=== PATIENT | female | born 1965 | race Two or more races ===

== ENCOUNTER 2017-08-23 16:28 | Emergency (ER) | payer OTHER, BC ==
[~2017-08-23] VITALS: Ht 157.5 cm; Wt 70.1 kg
[~2017-08-23 16:28] MED LIST: ALBUTEROL2.5 MG/3 M IH; AMLODIPINE-ATO1 EACH PO; CIPRO500 MG PO; LO-DOSE ASPIRIN81 M1 PO; TRAMADOL HCL50 MG PO
[2017-08-23] MEDS ORDERED: FLEXERIL10 MG PO (18:47)
[2017-08-23 18:56] VITALS: BP 184/105
== END 2017-08-23 18:59 | disposition home or self-care (01) ==
LOC: EME 16:28
DX: S13.9XXA Sprain of joints and ligaments of unspecified parts of neck, initial encounter (principal); V49.40XA Driver injured in collision with unspecified motor vehicles in traffic accident, initial encounter; Y92.410 Unspecified street and highway as the place of occurrence of the external cause; I10 Essential (primary) hypertension; Z79.82 Long term (current) use of aspirin
CPT/HCPCS: 72040; 99281; 99284